=== PATIENT | female | born 2000 | race Caucasian/White ===

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

== ENCOUNTER 2019-07-12 19:00 | Emergency (ER) | payer OTHER ==
[~2019-07-12] VITALS: Ht 160 cm; Wt 99.3 kg
[2019-07-12 19:25] VITALS: Ht 160 cm; Wt 99.3 kg
[2019-07-12 22:00] VITALS: BP 121/73
== END 2019-07-12 22:00 | disposition home or self-care (01) ==
LOC: ED 19:00
DX: L50.0 Allergic urticaria (principal)
CPT/HCPCS: Q0163